=== PATIENT | male | born 1950 | race Caucasian/White ===

== ENCOUNTER 2017-10-22 23:14 | Emergency (ER) | payer SELFPAY ==
[~2017-10-22 23:14] MED LIST: EPINEPHrine SYRINGE 1 MG/10 ML SYRINGE; EPINEPHrine VIAL 30 MG/30 ML VIAL; SODIUM BICARB ADULT 8.4% 50 MEQ/50 ML DISP.SYRIN.
== END 2017-10-23 02:02 | disposition home or self-care (01) ==
LOC: ER 23:14
DX: I46.9 Cardiac arrest, cause unspecified (principal)
CPT/HCPCS: 92950; 99285-25; J0171